=== PATIENT | female | born 1965 | race Caucasian/White ===

== ENCOUNTER 2017-09-02 06:22 | Day surgery (SDC) | payer OTHER ==
[~2017-09-02] VITALS: Ht 167.6 cm; Wt 131.3 kg
[2017-09-02] VITALS (9 sets, daily range): BP systolic 91–139; BP diastolic 55–83; PULSE 62–88; TEMP 98.4
[2017-09-02] MEDS ORDERED: ASPIRIN 81M81 MG/TA2 PO (08:15)
[2017-09-02] MEDS ORDERED: VALIUM 5MG T5 MG/TAB PO (08:16)
[2017-09-02] MEDS ORDERED: ZYRTEC 10MG10 MG PO (08:16)
[2017-09-02] MEDS ORDERED: ZOLOFT 25MG25 MG PO (08:17)
[2017-09-02 08:19] LABS: CALCIUM 9.3 mg/dL (8.4-10.2); CREATININE, serum 0.89 mg/dL (0.52-1.25); POTASSIUM 4.3 mmol/L (3.4-5.0)
[2017-09-02 08:20] LABS: HEMATOCRIT 42.9 % (37.0-47.0); HEMOGLOBIN 14.2 g/dl (12.5-16.0); MEAN CELL VOLUME 85 fl (80.0-100.0); MEAN CORPUSCULAR HEMOGLOBIN 28 pg (27.0-31.0); MEAN CORPUSCULAR HGB CONC 33 g/dl (33.0-37.0); MEAN PLATELET VOLUME 9.9 fl (7.4-10.4); PLATELET COUNT 275 K/mm3 (130-400); RED BLOOD COUNT 5.06 M/mm3 (4.10-5.30); REDCELL DISTRIBUTION WIDTH-CV 13.8 % (11.5-14.5)
[2017-09-02 08:21] LABS: PROTHROMBIN TIME 11.5 SECONDS (9.7-12.8)
[2017-09-02] MEDS ORDERED: OMEGA-3 1000 MG1 CAP PO (10:20)
[2017-09-02] MEDS ORDERED: LIPITOR 10MG10 MG PO (10:20)
[2017-09-02] MEDS ORDERED: PROAIR HFA0.09 MG/AC IH ×2 (10:21→10:23)
== END 2017-09-02 14:45 | disposition home or self-care (01) ==
LOC: COL.CAR 06:22
PROVIDERS: Internal Medicine Cardiovascular Disease
DX: R94.39 Abnormal result of other cardiovascular function study (principal); R06.02 Shortness of breath; F41.9 Anxiety disorder, unspecified; K21.9 Gastro-esophageal reflux disease without esophagitis; E78.2 Mixed hyperlipidemia; Z82.49 Family history of ischemic heart disease and other diseases of the circulatory system
CPT/HCPCS: J2250; J3010; Q9967

== ENCOUNTER → 2018-10-20 | Outpatient (CLI) | payer OTHER ==
[~2018-10-20] MED LIST: ASPIRIN 81M81 MG/TA2 PO; LIPITOR 10MG10 MG PO; OMEGA-3 1000 MG1 CAP PO; PROAIR HFA0.09 MG/AC IH; VALIUM 5MG T5 MG/TAB PO; ZOLOFT 25MG25 MG PO; ZYRTEC 10MG10 MG PO
== END ==
LOC: COL.VAS 09:32
DX: M79.89 Other specified soft tissue disorders (principal); Z98.890 Other specified postprocedural states

== ENCOUNTER → 2019-06-27 | Outpatient (CLI) | payer OTHER | LOC: MC.RAD 07:30 | DX: R92.0 Mammographic microcalcification found on diagnostic imaging of breast (principal) ==

== ENCOUNTER → 2019-07-06 | Outpatient (CLI) | payer OTHER | LOC: MC.RAD 08:29 | DX: R92.0 Mammographic microcalcification found on diagnostic imaging of breast (principal); Z98.82 Breast implant status ==

== ENCOUNTER 2020-02-28 09:00 | Outpatient (RCR) | payer OTHER | END 2020-03-06 | disposition home or self-care (01) | LOC: WSPT | DX: C50.111 Malignant neoplasm of central portion of right female breast (principal); Z90.11 Acquired absence of right breast and nipple ==

== ENCOUNTER 2020-05-07 11:00 | Outpatient (RCR) | payer OTHER | END 2020-05-14 | disposition home or self-care (01) | LOC: WSPT | DX: C50.111 Malignant neoplasm of central portion of right female breast (principal) ==

== ENCOUNTER 2020-05-22 15:00 | Outpatient (RCR) | payer OTHER | END 2020-08-16 | disposition home or self-care (01) | LOC: WSPT | DX: C50.111 Malignant neoplasm of central portion of right female breast (principal); Z90.11 Acquired absence of right breast and nipple ==

== ENCOUNTER 2020-10-31 15:00 | Outpatient (RCR) | payer OTHER | END 2020-11-12 | LOC: WSPT | DX: C50.911 Malignant neoplasm of unspecified site of right female breast (principal); Z90.11 Acquired absence of right breast and nipple ==

== ENCOUNTER 2021-02-05 14:15 | Outpatient (RCR) | payer OTHER | END 2021-02-11 | disposition home or self-care (01) | LOC: WSPT | DX: C50.911 Malignant neoplasm of unspecified site of right female breast (principal); Z98.890 Other specified postprocedural states ==

== ENCOUNTER 2021-04-26 15:00 | Outpatient (RCR) | payer OTHER | END 2021-05-10 | disposition home or self-care (01) | LOC: WSPT | DX: C50.911 Malignant neoplasm of unspecified site of right female breast (principal); Z90.11 Acquired absence of right breast and nipple ==

== ENCOUNTER 2021-07-10 15:04 | Outpatient (RCR) | payer OTHER | END 2021-08-08 | disposition still patient (30) | LOC: WSPT | DX: C50.911 Malignant neoplasm of unspecified site of right female breast (principal); Z90.11 Acquired absence of right breast and nipple ==

== ENCOUNTER 2021-08-27 15:00 | Outpatient (RCR) | payer OTHER | END 2021-09-07 | disposition home or self-care (01) | LOC: WSPT | DX: C50.911 Malignant neoplasm of unspecified site of right female breast (principal); Z90.11 Acquired absence of right breast and nipple ==

== ENCOUNTER 2021-09-20 09:15 | Outpatient (RCR) | payer OTHER | END 2021-10-08 | disposition home or self-care (01) | LOC: WSPT | DX: C50.911 Malignant neoplasm of unspecified site of right female breast (principal); Z90.11 Acquired absence of right breast and nipple ==

== ENCOUNTER 2021-11-06 09:30 | Outpatient (RCR) | payer OTHER | END 2021-11-07 | disposition still patient (30) | LOC: WSPT | DX: C50.911 Malignant neoplasm of unspecified site of right female breast (principal); Z90.11 Acquired absence of right breast and nipple ==

== ENCOUNTER 2021-12-06 14:15 | Outpatient (RCR) | payer OTHER | END 2021-12-08 | disposition home or self-care (01) | LOC: WSPT | DX: C50.912 Malignant neoplasm of unspecified site of left female breast (principal); Z98.890 Other specified postprocedural states ==

== ENCOUNTER 2021-12-26 15:00 | Outpatient (RCR) | payer OTHER | END 2022-01-08 | disposition home or self-care (01) | LOC: WSPT | DX: C50.911 Malignant neoplasm of unspecified site of right female breast (principal); Z90.11 Acquired absence of right breast and nipple ==

== ENCOUNTER 2022-06-02 14:19 | Outpatient (RCR) | payer OTHER | END 2022-06-10 | disposition home or self-care (01) | LOC: WSPT | DX: C50.911 Malignant neoplasm of unspecified site of right female breast (principal); Z90.11 Acquired absence of right breast and nipple ==

== ENCOUNTER 2022-06-16 15:46 | Outpatient (RCR) | payer OTHER | END 2022-07-08 | disposition home or self-care (01) | LOC: WSPT | DX: C50.911 Malignant neoplasm of unspecified site of right female breast (principal); Z90.11 Acquired absence of right breast and nipple ==

== ENCOUNTER 2022-12-31 12:45 | Outpatient (RCR) | payer OTHER | END 2023-01-08 | disposition home or self-care (01) | LOC: WSPT | DX: I89.0 Lymphedema, not elsewhere classified (principal); C50.111 Malignant neoplasm of central portion of right female breast; Z17.0 Estrogen receptor positive status [ER+]; Z90.11 Acquired absence of right breast and nipple ==

== ENCOUNTER 2023-01-27 13:00 | Outpatient (RCR) | payer OTHER | END 2023-02-07 | disposition home or self-care (01) | LOC: WSPT | DX: I89.0 Lymphedema, not elsewhere classified (principal); C50.111 Malignant neoplasm of central portion of right female breast; Z17.0 Estrogen receptor positive status [ER+] ==